=== PATIENT | female | born 1995 | race Caucasian/White ===

== ENCOUNTER 2023-10-04 13:14 | Observation (INO) | payer OTHER, MEDICAID, SELFPAY ==
[2023-10-04] VITALS (20 sets, daily range): BP systolic 98–118; BP diastolic 54–71; PULSE 79–116; RESP 10–23; TEMP 35.9–36.8; O2SAT 97–100; BMI 27.1
--- NOTE | 2023-10-04 | PATH_ITS ---
[facility] Accession Number: [id number] No. of containers..01 Tissue . 01 Material submitted: . fallopian tube - L FALLOPIAN TUBE W/ECTOPIC . 01 Diagnosis: L FALLOPIAN TUBE W/ECTOPIC: IMMATURE CHORIONIC VILLI EXPANDING LUMEN AND INVOLVING FALLOPIAN TUBE (ECTOPIC ). ASSOCIATED ACUTE SALPINGITIS, FIBRINOUS HEMORRHAGE, AND REACTIVE CHANGES. NO MALIGNANCY. . MNT 10/12/20231424 Local . 01 Electronically signed: . Tabatha Bustamante MD, Pathologist NPI- [id number] . 01 Gross description: . The specimen is received in formalin, labeled with the patient's name, , and L fallopian tube with ectopic, and consists of a fimbriated fallopian tube measuring 7.6 cm in length and ranging from 0.9 to 2.3 cm in diameter. A hemorrhagic serosal defect is identified measuring 2.3 x 1.4 cm. Sectioning reveals a dilated lumen filled with solid hemorrhagic material with no tissue identified. Telephone Information Clerk sections are submitted in cassettes A1-A3. ([id number]) /MRV 10/12/20231424 Local . 01 Pathologist provided ICD-10: O00 . 01 CPT . 610868 Performed at: 01 [facility] [address], [place], [place] [id number] MD Venkata Madera MD Phone: [phone]
--- NOTE | 2023-10-04 13:53 | ED_ITS ---
HPI - Seizure General Chief Complaint: Seizure Stated Complaint: abd px/seizure-like Time Seen by Provider: 10/04/23 13:52 Source: patient and EMS Mode of arrival: EMS History of Present Illness HPI Narrative: 27-year-old female presents with loss of consciousness episode. She has had bilateral lower abdominal pain, aching, nonradiating on clarification from triage, with associated nausea, no vomiting, no diarrhea or constipation, no fevers or chills, no chest pain, no shortness of breath, no back or flank pain, no dysuria or hematuria though with some urinary frequency. She denies prior abdominal surgeries. She has been taking ibuprofen which helps. No sudden or severe pain. However, today in clinic, pain was gradually worsening and she had a witnessed loss of consciousness episode as described below. She denies this happening before. No trauma. No headache. No neck pain. No visual or hearing changes. Significant other at bedside corroborating. No history of STDs. No vaginal discharge or lesions. No leg swelling, leg pain, history of blood clots. She has a ParaGard IUD. No other new concerns. She declines pain medications currently. Per chart review, she noted left lower quadrant pain since Wednesday night, 3 days ago, aching, worse with sitting or using restroom or coughing. She has IUD. She was noted to have blood pressure of 100/68, with some tachycardia. She had episode of during her assessment in clinic with preceding nausea and discomfort than associated brief loss of consciousness, with drop in BP to 70/30, diaphoresis. There was body jerking noted as per walk in clinic note. I called walk-in clinic to clarify episode. I spoke with Haydee. On clarification, Haydee states that patient had presyncopal symptoms, then LOC, with a brief episode of muscle jerking that sounds most consistent with myoclonic jerking. There was NO post ictal phase, no incontinence, no tongue biting. Related Data Home Medications Medication Instructions Recorded Confirmed ibuprofen 400 mg PO PRN PRN Pain (Scale 10/04/23 10/04/23 Score 4-6) Allergies Allergy/AdvReac Type Severity Reaction Status Date / Time No Known Drug Allergies Allergy Verified 10/04/23 16:07 Review of Systems Review of Systems Narrative: Constitutional: no fever, no chills Eyes: no visual disturbance, no discharge Ears, Nose, Mouth, Throat: no rhinorrhea, no sore throat Cardiovascular: no chest pain, no palpitations Respiratory: no cough, no shortness of breath Gastrointestinal: + abdominal pain, no vomiting, no diarrhea Genitourinary: no dysuria, no hematuria Musculoskeletal: no back pain, no neck stiffness Skin: no rash, no wound Neurological: no focal weakness, no focal numbness Patient History Surgical History (Updated 10/04/23 @ 15:56 by Anna Little MD) S/P wisdom tooth extraction Social History Smoking Status: Never smoker Smoking Status: Never smoker alcohol intake frequency: a few times a week Alcohol type: hard liquor Substance Use Type: marijuana Exam Narrative Exam Narrative: Const: no acute distress, non toxic appearing; calm, conversant, pleasant Eyes: PERRLA, EOMI ENT: mucous membranes moist; no tongue lacerations Neck: supple, non-tender Resp: no respiratory distress, clear to auscultation bilaterally Card: regular rate and rhythm, no murmurs Abd: Mild lower abdominal tenderness without any upper abdominal tenderness, negative Elizalde's sign, no rigidity or rebound or guarding Back: no T or L spine tenderness, no CVA tenderness bilaterally Extrem: no deformities, no swelling bilateral lower extremities, 2+ distal pulses all extremities Neuro: ANOx4. registered nurse first assistant 2-12 intact. No rotatory or vertical nystagmus. Normal tone all extremities. Sensation intact to light touch all extremities. No ankle clonus bilaterally. 5/5 motor strength all extremities. Normal FNF BUE; normal heel-krause test BLE. No pronator drift. No dysarthria. No neglect. Grossly normal cognition. Skin: no rash, warm and dry Initial Vital Signs Initial Vital Signs: Vital Signs Temperature 97.9 F 10/04/23 13:27 Pulse Rate 113 H 10/04/23 13:27 Respiratory Rate 16 10/04/23 13:27 Blood Pressure 114/69 10/04/23 13:27 Pulse Oximetry 100 10/04/23 13:27 Oxygen Delivery Method Room Air 10/04/23 13:27 Course Course Course Narrative: This patient presents with witnessed loss of consciousness episode that is highly consistent with syncope, not seizure, with history as above and currently reassuring neurovascular exam with no focal deficits. I suspect vasovagal episode potentially contributed to by preceding abdominal pain, in the setting of lower abdominal pain as above with a broad differential that I have considered including but not limited to appendicitis, diverticulitis, ectopic , pyelonephritis, UTI, STD, PID, tubo-ovarian abscess, gastroenteritis, among others. I am proceeding with CBC, CMP, lipase, urinalysis, hCG, EKG, CT abdomen and pelvis. I am giving fluids, Zofran and will closely reassess. She declines pain medications currently. CBC with leukocytosis that is neutrophilic, with anemia to 7.8, no thrombocytopenia. No recent for comparison. Chemistry grossly reassuring, no immediately concerning electrolyte derangements, no hypoglycemia, creatinine and LFTs within normal limits. EKG NSR without acute ischemia or immediately concerning interval prolongation. No WPW, Long QT, Brugada, HOCM. test returned positive, qualitative. This is highly concerning for ectopic . We are cancelling CT which has not been obtained yet, immediately requesting transvaginal ultrasound along with OB consult. I am requesting 2 large-bore IVs, adding type and screen, and updating patient. Quant hCG added. OB is in surgery, but my staff has alerted there team to concern for ruptured ectopic. Patient is currently hemodynamically stable and fully updated. engineer technical staff here. US tech reports ruptured ectopic as well as probable perforation of IUD through uterus. I spoke with Dr. Little on phone, reviewing case at 3:13PM. Patient appears comfortable, hemodynamically stable, though I did request 2u of pRBCs be crossed. Unclear Rh status at this point. Dr. Little in ER. Patient Rh positive, no RhoGAM needed. Patient remains stable, awaiting admission and OR. Radiology review of US below, which I agree with on my independent review: FINDINGS: Uterus: Uterus is anteverted and normal in size at 7.6 x 4.6 x 4.2 cm. The myometrium is heterogeneous. The endometrium measures 8 mm combined thickness. IUD in the endometrial canal. The IUD is lower than expected. Possible myometrial penetration. Small volume of fluid in the endometrial canal. No intrauterine gestational sac demonstrated. Ovaries: The right ovary measures 3.7 x 2 x 1.5 cm, with a calculated ovarian volume of 6 cc. The left ovary measures 4.1 x 2.3 x 2 cm, with a calculated ovarian volume of 10 cc. Arterial and venous flow is seen in both ovaries. Complex cystic mass adjacent to the left ovary measuring 2.3 x 2 x 1.9 cm, estimated volume of 5 cc. Mild peripheral blood flow. Other: Large amount of complex fluid in the pelvis. IMPRESSION: 1. Suspect left ovarian ectopic . Complex left paraovarian cystic mass measuring 2.3 cm. 2. Large volume of complex fluid in the pelvis. Suspect hemoperitoneum. 3. No intrauterine gestational sac. 4. IUD is malpositioned. Recommend removal and replacement when clinically indicated. Exam findings discussed with Dr. Little at 3:48 p.m. We strive to produce accurate, complete, and clear reports of imaging services. To assist us in improving patient care, this report was composed using standard report templates and voice recognition software. Therefore, it may contain abnormal punctuation, insertions and/or omissions. Occasional wrong-word or sound-alike substitutions may occur. Though we review the report and make efforts to correct it, we do recommend that the report be read carefully in proper context to recognize any text inaccuracies. Dictated by: Christoph Santana M.D. on 10/04/2023 at 15:36 Notes urine returned with bacteria; no antibiotics given in ER, I requested staff update OB team with this finding. This seems most likely incidental however this time given ruptured ectopic likely driving symptoms. Orders Ordered: ED Orders 10/04/23 13:19 CBC Auto Diff [Complete Blood Count AUTO DIFF] Stat CMP [Comprehensive Metabolic Panel] Stat HCG Quantitative /Beta subunit Stat Test Serum,Qual Stat 10/04/23 13:44 EKG-12 Lead Stat 10/04/23 14:23 US pelvic complete Stat 10/04/23 14:43 Type and Screen Stat 10/04/23 14:53 Urinalysis and Microscopic Stat Urine Culture Stat 10/04/23 15:17 Type and Screen Stat Lactated Ringer's (Lactated Ringers) 1,000 mls @ 21 mls/hr IV CONT FALLON Last Admin: 10/04/23 16:20 Dose: 21 mls/hr Documented By: CAYDEN Ondansetron HCl (Ondansetron 4 Mg/2 Ml Inj) 4 mg IV Q2HR PRN PRN Reason: Nausea And Vomiting Discontinued Medications Sodium Chloride (Normal Saline 0.9%) 1,000 mls @ 1,000 mls/hr IV BOLUS ONE Stop: 10/04/23 15:08 Last Infusion: 10/04/23 15:51 Dose: Infused Documented By: Admin: 10/04/23 14:54 Dose: 1,000 mls/hr Documented By: YUDI Cefazolin Sodium/Dextrose (Ancef) 100 mls @ 200 mls/hr IV NOW ONE Stop: 10/04/23 16:21 Scopolamine (Scopolamine 1 Patch) 1 patch TOP NOW ONE Stop: 10/04/23 16:12 Last Admin: 10/04/23 16:19 Dose: 1 patch Documented By: CAYDEN Vital Signs Vital signs: Vital Signs - 8 hr 10/04/23 13:27 10/04/23 13:40 10/04/23 13:41 Temperature 97.9 F Pulse Rate 113 H 104 H Respiratory Rate 16 13 Blood Pressure 114/69 113/71 Pulse Oximetry 100 100 Oxygen Delivery Method Room Air 10/04/23 14:00 10/04/23 14:00 10/04/23 14:30 Temperature Pulse Rate 101 H 94 H Respiratory Rate 21 Blood Pressure 106/62 Pulse Oximetry 100 100 Oxygen Delivery Method Room Air 10/04/23 14:30 10/04/23 15:00 10/04/23 15:00 Temperature Pulse Rate 95 H Respiratory Rate 23 Blood Pressure 108/66 107/68 Pulse Oximetry 100 Oxygen Delivery Method Room Air 10/04/23 15:30 10/04/23 15:30 Temperature Pulse Rate 105 H Respiratory Rate 20 Blood Pressure 113/69 Pulse Oximetry 100 Oxygen Delivery Method Room Air MDM - Seizure Lab Data 10/04/23 13:19 10/04/23 13:19 Labs: Lab Results 10/04/23 10/04/23 10/04/23 Range/Units 13:19 14:43 14:53 WBC 14.9 H (4.5-11.0) X10^3/uL RBC 3.55 L (4.0-5.2) X10^6/uL Hgb 11.8 L (12.0-16.0) g/dL Hct 33.3 L (36-46) % MCV 93.8 (80-100) fL MCH 33.3 (26-34) PG MCHC 35.5 (30-36) % RDW 12.0 (11.6-14.8) % Plt Count 398 (150-400) X10^3/uL Neut % (Auto) 74.3 (50-75) % Lymph % (Auto) 16.2 L (25-40) % [place] % (Auto) 9.1 (3-14) % Eos % (Auto) 0.1 L (2-4) % Baso % (Auto) 0.3 (0-2) % Neut # (Auto) 03461 H (6254-8070) /uL Lymph # (Auto) 2400 (2028-1859) /uL [place] # (Auto) 1400 H (0-900) /uL Eos # (Auto) 0 (0-450) /uL Baso # (Auto) 0 (0-100) /uL Sodium 138 (137-145) mmol/L Potassium 3.6 (3.4-5.1) mmol/L Chloride 108 H (98-107) mmol/L Carbon Dioxide 24 (22-32) mmol/L BUN 7 (7-17) mg/dL Creatinine 0.60 (0.52-1.04) mg/dL Estimated GFR > 60 (>60) mL/min BUN/Creatinine Ratio 11.7 (6-22) Glucose 123 H (70-100) mg/dL Calcium 8.8 (8.4-10.2) mg/dL Total Bilirubin 0.6 (0.2-1.3) mg/dL AST 27 (14-36) IU/L ALT 20 (<35) IU/L Alkaline Phosphatase 67 (38-126) U/L Total Protein 7.1 (6.3-8.2) g/dL Albumin 4.2 (3.5-5.0) g/dL Globulin 2.9 (1.7-4.1) g/dL Albumin/Globulin Ratio 1.4 (1.0-2.8) HCG, Quant 4035.1 mIU/mL Serum , Qual Positive H (Negative) Urine Color Yellow Urine Appearance Clear Urine pH 6.0 (4.5-8.0) Ur Specific [place] 1.025 (1.000-1.035) Urine Protein Trace H (Negative) Urine Glucose (UA) Negative (Negative) g/dL Urine Ketones Negative (NEGATIVE) Urine Occult Blood 2+ H (Negative) Urine Nitrate Negative (Negative) Urine Bilirubin Negative (NEGATIVE) Urine Urobilinogen 0.2 (0.2) E.U./dL Ur Leukocyte Esterase Negative (NEGATIVE) Urine RBC 5-10/hpf H (0-5/HPF) Urine WBC 5-10/hpf H (0-5/HPF) Ur Squamous Epith Cells 5-10 /hpf H (0-5/HPF) Ur Renal Epithelial Cell 1-5/hpf H (0-1/HPF) Urine Bacteria Many (>30) H (None) Ur Culture Indicated? Specimen cultured Vol Urine Centrifuged 10ml (spun) Blood Type O Positive Antibody Screen Negative Discharge Plan Departure Admit Date/Time: 10/04/23 15:40 Admit Provider: Anna Little
[2023-10-04 13:55] LABS: Add Manual Diff / Slide Review NO; Basophils Absolute Auto 0 /uL (0-100); Basophils Percent Auto 0.3 % (0-2); Eosinophils Absolute Auto 0 /uL (0-450); Eosinophils Percent Auto 0.1 % (2-4); Hematocrit 33.3 % (36-46); Hemoglobin 11.8 g/dL (12.0-16.0); Lymphocytes Absolute Auto 2400 /uL (1100-4500); Lymphocytes Percent Auto 16.2 % (25-40); Mean Corpuscular HGB Conc 35.5 % (30-36); Mean Corpuscular Hemoglobin 33.3 PG (26-34); Mean Corpuscular Volume 93.8 fL (80-100); Monocytes Absolute Auto 1400 /uL (0-900); Monocytes Percent Auto 9.1 % (3-14); Neutrophils Absolute Auto 11100 /uL (1500-7000); Neutrophils Percent Auto 74.3 % (50-75); Platelet Count 398 X10^3/uL (150-400); Red Blood Cell Count 3.55 X10^6/uL (4.0-5.2); White Blood Cell Count 14.9 X10^3/uL (4.5-11.0)
[2023-10-04 14:00] LABS: Alanine Aminotransferase 20 IU/L (<35); Albumin 4.2 g/dL (3.5-5.0); Albumin Globulin Ratio 1.4 (1.0-2.8); Alkaline Phosphatase 67 U/L (38-126); Aspartate Aminotransferase 27 IU/L (14-36); BUN Creatinine Ratio 11.7 (6-22); Bilirubin Total 0.6 mg/dL (0.2-1.3); Blood Urea Nitrogen 7 mg/dL (7-17); Calcium 8.8 mg/dL (8.4-10.2); Carbon Dioxide 24 mmol/L (22-32); Chloride 108 mmol/L (98-107); Estimated Glomerular Filt Rate > 60 mL/min (>60); Globulin 2.9 g/dL (1.7-4.1); Glucose 123 mg/dL (70-100); HEMOLYSIS < 15 (0-50); Potassium 3.6 mmol/L (3.4-5.1); Sodium 138 mmol/L (137-145); Total Protein 7.1 g/dL (6.3-8.2)
[2023-10-04 14:03] LABS: Pregnancy Test Serum,Qual Positive (Negative)
--- NOTE | 2023-10-04 14:23 | DI.US.S_ITS ---
PROCEDURE: US PELVIC COMPLETE INDICATIONS: BILATERAL ADNEXA PAIN WITH BLEEDING. COPPER IUD 2018. POS HCG. TECHNIQUE: Real-time scanning was performed of the pelvic organs, with image documentation. Additional endovaginal scanning was necessary due to incomplete visualization of the adnexal and endometrial structures by transabdominal scanning. COMPARISON: None. FINDINGS: Uterus: Uterus is anteverted and normal in size at 7.6 x 4.6 x 4.2 cm. The myometrium is heterogeneous. The endometrium measures 8 mm combined thickness. IUD in the endometrial canal. The IUD is lower than expected. Possible myometrial penetration. Small volume of fluid in the endometrial canal. No intrauterine gestational sac demonstrated. Ovaries: The right ovary measures 3.7 x 2 x 1.5 cm, with a calculated ovarian volume of 6 cc. The left ovary measures 4.1 x 2.3 x 2 cm, with a calculated ovarian volume of 10 cc. Arterial and venous flow is seen in both ovaries. Complex cystic mass adjacent to the left ovary measuring 2.3 x 2 x 1.9 cm, estimated volume of 5 cc. Mild peripheral blood flow. Other: Large amount of complex fluid in the pelvis. IMPRESSION: 1. Suspect left ovarian ectopic . Complex left paraovarian cystic mass measuring 2.3 cm. 2. Large volume of complex fluid in the pelvis. Suspect hemoperitoneum. 3. No intrauterine gestational sac. 4. IUD is malpositioned. Recommend removal and replacement when clinically indicated. Exam findings discussed with Dr. Little at 3:48 p.m. We strive to produce accurate, complete, and clear reports of imaging services. To assist us in improving patient care, this report was composed using standard report templates and voice recognition software. Therefore, it may contain abnormal punctuation, insertions and/or omissions. Occasional wrong-word or sound-alike substitutions may occur. Though we review the report and make efforts to correct it, we do recommend that the report be read carefully in proper context to recognize any text inaccuracies. Dictated by: Christoph Santana M.D. on 10/04/2023 at 15:36 Approved by: Christoph Santana M.D. on 10/04/2023 at 15:49
[2023-10-04] MEDS: SODIUM CHLORIDE 0.9% 1,000 ML 1000 ML IV (14:54)
[2023-10-04 15:07] LABS: Appearance Urine UA CLEAR; Bilirubin Urine UA NEGATIVE (NEGATIVE); Color Urine UA YELLOW; Glucose Urine UA NEGATIVE (Negative); Ketones Urine UA NEGATIVE (NEGATIVE); Leukocyte Esterase Urine UA NEGATIVE (NEGATIVE); Nitrite Urine UA NEGATIVE (Negative); Occult Blood Urine UA 2+ (Negative); Protein Urine UA TRACE (Negative); Specific Gravity Urine UA 1.025 (1.000-1.035); Urobilinogen Urine UA 0.2 E.U./dL (0.2)
[2023-10-04 15:16] LABS: Bacteria Urine Many (>30); Culture Indicated Urine Specimen Cultured; RBC Urine 5-10/HPF (0-5/HPF); Renal Epithelial Cells Urine 1-5/HPF (0-1/HPF); Squamous Epithelial Cell Urine 5-10 /HPF (0-5/HPF); Urine Volume 10mL (spun); WBC Urine 5-10/HPF (0-5/HPF)
[2023-10-04 15:17] LABS: HCG Quantitative /Beta subunit 4035.1 mIU/mL
--- NOTE | 2023-10-04 15:54 | PM.GYNHP.1 ---
History of Present Illness History of Present Illness Reason for admission: ectopic (Left) Narrative: Terri Valdez is a 27 year old female with a ruptured left ectopic and possible perforation of the uterus with ParaGard IUD. Patient reports that last Wednesday she started having some lower abdominal pain. Both sides. She had it again on Wednesday. Today she not only had pain but also felt lightheaded. Went to the walk-in clinic where she had a syncopal episode. She was then brought to the emergency department. She has had the ParaGard IUD in place for 4 years. She did check the strings yesterday as she thought that the IUD might be related to why she was having pain. She was able to palpate the strings. [facility] Surgical History (Updated 10/04/23 @ 15:56 by Anna Little MD) S/P wisdom tooth extraction Social History Smoking Status: Never smoker Meds Home Medications and Allergies Home Medications Medication Instructions Recorded Confirmed Type No Known Home Medications 10/04/23 10/04/23 History Allergies Allergy/AdvReac Type Severity Reaction Status Date / Time No Known Drug Allergies Allergy Verified 10/04/23 12:35 Exam Vital Signs (past 8 hours): - 10/04/23 13:27 10/04/23 13:40 10/04/23 13:41 Temperature 97.9 F Pulse Rate 113 H 104 H Respiratory Rate 16 13 Blood Pressure 114/69 113/71 Pulse Oximetry 100 100 Oxygen Delivery Method Room Air 10/04/23 14:00 10/04/23 14:00 10/04/23 14:30 Temperature Pulse Rate 101 H 94 H Respiratory Rate 21 Blood Pressure 106/62 Pulse Oximetry 100 100 Oxygen Delivery Method Room Air 10/04/23 14:30 10/04/23 15:00 10/04/23 15:00 Temperature Pulse Rate 95 H Respiratory Rate 23 Blood Pressure 108/66 107/68 Pulse Oximetry 100 Oxygen Delivery Method Room Air 10/04/23 15:30 10/04/23 15:30 Temperature Pulse Rate 105 H Respiratory Rate 20 Blood Pressure 113/69 Pulse Oximetry 100 Oxygen Delivery Method Room Air Oxygen Delivery Method Room Air Narrative Exam Narrative: Generally: A well-developed, well-nourished female, no acute distress Lungs: Clear to auscultation bilaterally Cardiovascular: Regular rate and rhythm Abdomen: Soft and flat. She does have tenderness in both lower quadrants. Extremities: No edema Objective Imaging US - abdomen: Radiologist's impression: Uterus: Uterus is anteverted and normal in size at 7.6 x 4.6 x 4.2 cm. The myometrium is heterogeneous. The endometrium measures 8 mm combined thickness. IUD in the endometrial canal. The IUD is lower than expected. Possible myometrial penetration. Small volume of fluid in the endometrial canal. No intrauterine gestational sac demonstrated. Labs 10/04/23 13:19 10/04/23 13:19 Labs: Laboratory Results - last 24 hr 10/04/23 10/04/23 10/04/23 13:19 14:43 14:53 WBC 14.9 H RBC 3.55 L Hgb 11.8 L Hct 33.3 L MCV 93.8 MCH 33.3 MCHC 35.5 RDW 12.0 Plt Count 398 Neut % (Auto) 74.3 Lymph % (Auto) 16.2 L [place] % (Auto) 9.1 Eos % (Auto) 0.1 L Baso % (Auto) 0.3 Neut # (Auto) 13346 H Lymph # (Auto) 2400 [place] # (Auto) 1400 H Eos # (Auto) 0 Baso # (Auto) 0 Sodium 138 Potassium 3.6 Chloride 108 H Carbon Dioxide 24 BUN 7 Creatinine 0.60 Estimated GFR > 60 BUN/Creatinine Ratio 11.7 Glucose 123 H Calcium 8.8 Total Bilirubin 0.6 AST 27 ALT 20 Alkaline Phosphatase 67 Total Protein 7.1 Albumin 4.2 Globulin 2.9 Albumin/Globulin Ratio 1.4 HCG, Quant 4035.1 Serum , Qual Positive H Urine Color Yellow Urine Appearance Clear Urine pH 6.0 Ur Specific [place] 1.025 Urine Protein Trace H Urine Glucose (UA) Negative Urine Ketones Negative Urine Occult Blood 2+ H Urine Nitrate Negative Urine Bilirubin Negative Urine Urobilinogen 0.2 Ur Leukocyte Esterase Negative Urine RBC 5-10/hpf H Urine WBC 5-10/hpf H Ur Squamous Epith Cells 5-10 /hpf H Ur Renal Epithelial Cell 1-5/hpf H Urine Bacteria Many (>30) H Ur Culture Indicated? Specimen cultured Vol Urine Centrifuged 10ml (spun) Blood Type O Positive Antibody Screen Negative Assessment & Plan Assessment & Plan narrative: Assessment: 27-year-old 1 para 0 with a ruptured left ectopic and a ParaGard IUD in the lower uterine segment Possible perforation of the uterine wall with the ParaGard IUD Plan: Diagnostic laparoscopy with possible left salpingectomy, possible diagnostic hysteroscopy with removal of IUD Removal of ParaGard IUD Placement of new [place] IUD The risks, benefits, and alternatives to the procedure were explained to the patient. The risks including bleeding, infection, injury to the bowel, bladder or ureters. Also a risk of uterine perforation. She understands all of these risks and agrees to proceed. A full par Q was held and consent form was signed. Time Spent With Patient Time with patient: less than 30 minutes
--- NOTE | 2023-10-04 16:00 | PM.PREOP ---
Pre-operative Note Interval Note History & Physical reviewed/Exam performed by Physician: Yes Changes to H&P: No H&P completed within 30 days and has changed as indicated here:: 10/04/23
[2023-10-04] MEDS: SCOPOLAMINE 1 PATCH TOP (16:19)
[2023-10-04] MEDS: LACTATED RINGERS 1,000 ML 21 ML IV ×2 (16:20→17:38)
[2023-10-04] MEDS: CEFAZOLIN 2 GM/100 ML PREMIX 100 ML IV (16:38)
--- NOTE | 2023-10-04 16:59 | PC.NURSE ---
Or Nurse aware that patient has a UTI. reported to Dr. Little .
[2023-10-04] MEDS: BUPIVACAINE 0.5% (PF) 30 ML, EPINEPHrine 0.15 MG INJ (17:01)
--- NOTE | 2023-10-04 17:10 | SUR.OPER ---
Lithotomy on padded OR bed. [place] Pad Positioner under torso. Head on pillow, arms padded and tucked at sides. Legs secured in padded yellow fins stirrups.
[2023-10-04] MEDS: ACETAMINOPHEN IV 1,000 MG/100 ML VIAL 400 MG IV (17:27)
--- NOTE | 2023-10-04 18:04 | P.OP_ITS ---
Operative Date/Time/Diagnoses Date of procedure: 10/04/23 Time of procedure: 18:04 Pre-op diagnosis: Ruptured left ectopic ParaGard IUD in the lower uterine segment Post-op diagnosis: same Procedure & Clinicians Procedure: Procedures Operation Date: 10/04/23 16:30 Actual Procedure Side Surgeon p Laparoscopic Salpingectomy with Ectopic Extraction Anna Little MD Indications: 27-year-old 1 para 0 who presented to the emergency department with lower abdominal pain. On ultrasound ParaGard IUD was found to be in the lower uterine segment, and possibly 1 of the arms perforating the uterine wall. And she was found to have a ruptured left ectopic. She was found to have significa nt free fluid in the abdomen. Surgeon: Anna Little Anesthesia Type: General and Local Operative Notes Findings: 6 cm x 2 cm left ectopic 1.5 L of blood/clot in the pelvis/abdomen Normal uterus Normal left ovary Normal right tube and ovary Normal appendix Normal gallbladder and liver ParaGard IUD sitting in the lower uterine segment Closure Type: primary Specimen(s): left tube (With ectopic) Estimated blood loss (mL): 5 Blood products transfused: none Procedure in detail: After informed consent was obtained, the patient was taken to the operating room where she was placed in the dorsal supine position. After adequate general endotracheal anesthesia was achieved, she was placed in the dorsal lithotomy position, and prepped and draped in the usual sterile fashion. A time-out was performed. A bivalve speculum was placed into the vagina. The IUD strings were visible outside of the cervical os. They were grasped with a ring forceps and the IUD was removed. The cervical os was sequentially dilated until the Zumi uterine manipulator could pass easily into the endometrial cavity. The single- tooth tenaculum was removed from the anterior lip of the cervix. The bivalve speculum was removed from the vagina. Attention was turned to the abdomen where 6 cc of 0.5% Marcaine with epinephrine were injected in the umbilical fold. A 5 mm incision was made. The Veress needle was placed into the peritoneal cavity, on aspiration there was bloody fluid. The abdomen was insufflated with 3.2 L of CO2. The Veress needle was removed, and a 5 mm trocar was placed without difficulty. Initial inspection of the pelvis and abdomen revealed a large amount of blood and clot. Two other incisions were made 4 cm lateral to the midline after 6 cc of 0.5% Marcaine with epinephrine were injected and two 5 mm trocars were placed under direct visualization. The abdomen was copiously irrigated with warm normal saline to break up the clot. The uterus was lifted out of the pelvis. Using a probe the pelvis and abdomen were examined with the findings noted above. The left tube was grasped with an atraumatic grasper. Using the power seal, the mesosalpinx on the left side was cauterized and cut all the way down to the cornua of the uterus. The tube was amputated at the cornua. The tube was placed into the anterior cul-de-sac. 6 cc of 0.5% Marcaine with epinephrine were injected above the pubic symphysis in the midline. An 11 mm incision was made. An 11 mm trocar was placed under direct visualization. The endobag was placed through the suprapubic trocar. The left tube with the ectopic was placed into the bag. The trocar was removed. The bag was brought up through the incision intact. The fascia on the suprapubic incision was closed with a [id number] suture with 0 Vicryl. The abdomen was re-insufflated. The pelvis was examined. Using the clots sucker, the remainder of the clot and blood was aspirated and irrigated from the pelvis. The patient was taken out of Trendelenburg and blood from the upper abdomen was also aspirated. The instruments were removed from the abdomen. The CO2 was allowed to escape. The incisions were repaired with 4-0 Monocryl in a subcuticular fashion. Steri-Strips and Allevyn dressings were placed. The Zumi uterine manipulator was removed from the uterus. Sponge, lap, and instrument counts were correct x2. The patient tolerated the procedure well, and was taken to PACU in stable condition. Complications: none Post-operative Condition: stable Disposition: PACU Plan for aftercare: To acute care after recovery
[2023-10-04 18:38] LABS: Hematocrit 27.6 % (36-46); Hemoglobin 9.6 g/dL (12.0-16.0); Mean Corpuscular HGB Conc 34.9 % (30-36); Mean Corpuscular Hemoglobin 32.7 PG (26-34); Mean Corpuscular Volume 93.6 fL (80-100); Platelet Count 237 X10^3/uL (150-400); Red Blood Cell Count 2.94 X10^6/uL (4.0-5.2); Red Cell Distribution Width 12.1 % (11.6-14.8); White Blood Cell Count 11.5 X10^3/uL (4.5-11.0)
[2023-10-04] MEDS: OXYCODONE IR 5 MG TABLET PO (18:48)
[2023-10-04] MEDS: ONDANSETRON 4 MG/2 ML INJ IV (18:48)
[2023-10-04] MEDS: LACTATED RINGERS 500 ML 1000 ML IV (18:55)
[2023-10-04] MEDS: LACTATED RINGERS 1,000 ML 100 ML IV (20:06)
[2023-10-04] MEDS: KETOROLAC 30 MG/ML VIAL IV (20:06)
[2023-10-04] MEDS: DOCUSATE 100 MG CAPSULE 200 MG PO (21:26)
[2023-10-04] MEDS: ACETAMINOPHEN 325 MG TABLET 650 MG PO (23:55)
[2023-10-05] MEDS: KETOROLAC 30 MG/ML VIAL IV ×2 (01:15→08:25)
[2023-10-05 05:16] VITALS: BP 102/57; PULSE 95; RESP 18; TEMP 36.2; O2SAT 99
[2023-10-05] MEDS: ACETAMINOPHEN 325 MG TABLET 650 MG PO ×2 (05:53→12:53)
[2023-10-05 06:24] LABS: Basophils Absolute Auto 0 /uL (0-100); Basophils Percent Auto 0.1 % (0-2); Eosinophils Absolute Auto 0 /uL (0-450); Hematocrit 24.4 % (36-46); Hemoglobin 8.8 g/dL (12.0-16.0); Lymphocytes Absolute Auto 500 /uL (1100-4500); Lymphocytes Percent Auto 6.9 % (25-40); Mean Corpuscular HGB Conc 36.1 % (30-36); Mean Corpuscular Hemoglobin 33.8 PG (26-34); Mean Corpuscular Volume 93.6 fL (80-100); Monocytes Absolute Auto 400 /uL (0-900); Monocytes Percent Auto 5.2 % (3-14); Neutrophils Absolute Auto 7000 /uL (1500-7000); Neutrophils Percent Auto 87.8 % (50-75); Platelet Count 247 X10^3/uL (150-400); Red Cell Distribution Width 12.2 % (11.6-14.8)
--- NOTE | 2023-10-05 06:34 | PC.NURSE ---
Admit/NOC Shift Note- Patient arrived to room via bed from PACU at 1945. Patient alert and oriented and able to make needs known to staff. Admit assessment done, physical assessment done, medications reviewed, and skin check completed. Patient orientered to bed and controls, lights, menu, bathroom, and call he/tv remote. No complaints of pain or discomfort. No complaints of N/V. Patient agrees to call for assistance. call he and phone within reach.
[2023-10-05 06:47] LABS: Add Manual Diff / Slide Review SLIDE REVIEW
[2023-10-05 06:56] LABS: Rouleaux 1+
[2023-10-05 08:00] VITALS: BP 105/61; PULSE 91; RESP 15; TEMP 36.6; O2SAT 100
[2023-10-05] MEDS: DOCUSATE 100 MG CAPSULE 200 MG PO (08:25)
[2023-10-05] MEDS: IBUPROFEN 600 MG TABLET PO (12:52)
--- NOTE | 2023-10-05 14:00 | PC.NURSE ---
Discharge: Pt feels ready to d/c to home. Seen by Dr. Little and given d/c instructions. Has been up and amb in room. Diet tolerated w/out problems. Voids w/out diff. No use of narcotic pain medication. Tylenol and Ibuprofen have been effective for pain. Scant vag flow, almost none. Pt d/c to home via auto w/friend.
--- NOTE | 2023-10-05 14:17 | CM.DANOTE ---
DCP Assessment Patient is a 27 yo female who was admitted 10/04/23 OBS status for Abd Pain. Pt has no insurance and no PCP due to no insurance. EMR was reviewed. Per OBGYN, pt with GIPO with ruptured ectopic with IUD removal and pt tolerated procedure well and voiding independently, ambulating, pain controlled and medically stable to discharge home today. Per RN, pt's friend to provide transport home and pt given discharge instructions and no discharge concerns noted. Pt lives with Sig Other and independent at baseline and drives. Per [employer], pt without insurance and does not qualify for [employer] but on the Health Plan Finder shopping for insurance and given [facility] [employer] application. BARRY Choudhary
--- NOTE | 2023-10-06 21:22 | P.DS_ITS ---
History of Present Illness History of Present Illness Date Patient Seen: 10/06/23 Time Patient Seen: 10:30 Chief complaint: abd px/seizure-like Discharge Providers Provider Date of admission: 10/04/23 15:40 Discharge Date: 10/05/23 Primary care physician: Doctor Byron MD Discharge provider: Anna Little MD Summary Hospital Course Discharge Diagnosis: Ruptured left ectopic Displaced Paraguard IUD Laparoscopic left oophorectomy Aspiration of blood/clot in the pelvic Acute blood loss anemia Hospital Course: Patient is a 27 year old who presented to the ED with lower abdominal pain and a syncopal episode. She was found to have a + UCG and an ultrasound revealed a Paragard IUD in the lower uterine segment and a ruptured left ectopic with blood in the pelvis. She underwent a laparoscopic removal of the left tube and aspiration of blood in the pelvis, as well as removal of the Paragard IUD and placement of a Kyleena IUD. Her H/H dropped to 8.8/24 postoperatively. She was kept overnight due to tachycardia and occasional drops in blood pressure. The next morning she was asymptomatic. She was discharged to home. Status at Discharge Cognitive/behavioral status at discharge: oriented Functional status at discharge: independent ambulation Overall status at discharge: patient is progressing back to baseline Time Spent with Patient Time spent: Less than 30 minutes Exam Vital Signs (past 8 hours): Oxygen Delivery Method Room Air Oxygen Flow Rate 0 Narrative Exam Narrative: Gen: Sitting up in bed, NAD Lungs: CTA bilat CV: RRR Abd: Soft and flat Incisions: C/D/I with Allevyn dressings Ext: No edema, negative Jeffy's. Objective Labs 10/05/23 04:25 10/04/23 13:19 [facility] Surgical History (Updated 10/04/23 @ 15:56 by Anna Little MD) S/P wisdom tooth extraction Social History household members: significant other Smoking Status: Never smoker alcohol intake: current Discharge Assessment & Plan Assessment and Plan Assessment: POD#1 s/p Laparoscopic left salpingectomy due to a ruptured ectopic, removal of Paragard IUD and placement of Kyleena IUD doing very well Plan of Treatment: Discharge to home F/U 2 weeks Discharge Plan Discharge Plan Patient Disposition: Home Provider Discharge Comment: Call with fever, chills, redness or drainage around the incisions Expect a small amount of vaginal bleeding Ibuprofen 600 mg every 6 hours Tylenol 650 mg every 6 hours Stool softeners as needed Slow Fe (iron) for at least a month Discharge orders & Medications Prescriptions: New oxycodone 5 mg tablet 5 mg PO Q4H PRN (Reason: pain) Qty: 20 0RF oxycodone 5 mg tablet 5 mg PO Q4H PRN (Reason: pain) Qty: 20 0RF Continued ibuprofen 400 mg PO PRN PRN (Reason: Pain (Scale Score 4-6)) Follow up/Referrals: Anna Little MD [Physician] - (10/18/23 check in at 3:30 for paperwork, 4:00pm appointment If she has any issues prior to that appointment please call [phone] ) Diet/Activity/Treatments Diet: Regular Activity: No heavy lifting for the first week Skin/Wound/Dressing Care Report to your healthcare provider any signs of infection, such as:: chills, fever, increased pain, unusual drainage and unusual redness Dressing: Remove outer pink dressings with attached gauze on Wednesday after morning shower May shower daily Leave Steri-Strips in place Visit Report/Discharge Packet Instructions: DI for Ectopic , Good Food Sources of Iron, DI for Laparoscopy, DI for Constipation, DI for Prescription Opioid Use Stand Alone Forms: Patient Portal/API, Stroke Signs & Symptoms, Surgery Discharge Discharge Data Primary Care Provider: Miscellaneous,Doctor Attending Provider: Anna Little Admit Date/Time: 10/04/23 15:40 Quality VTE Deep Vein Thrombosis/Pulmonary Embolism Present on Admission: No
== END 2023-10-05 13:27 | disposition home or self-care (01) ==
LOC: ED 15:23 → AC 15:41
PROVIDERS: Student in an Organized Health Care Education/Training Program; Admitting Provider Obstetrics & Gynecology; Emergency Provider Emergency Medicine; Visit Provider Obstetrics & Gynecology
PROC: (CPT 58301; principal; 2023-10-04 16:30)
DX: O00.102 Left tubal pregnancy without intrauterine pregnancy (principal); I95.9 Hypotension, unspecified; G25.3 Myoclonus; T83.32XA Displacement of intrauterine contraceptive device, initial encounter; O08.89 Other complications following an ectopic and molar pregnancy; O08.1 Delayed or excessive hemorrhage following ectopic and molar pregnancy
CPT/HCPCS: 58301; 59151; 36415; 76830; 76856; 80053; 81001; 84702; 84703; 85025; 85027; 86850; 86900; 86901; 87086; 93005; 93010; 93975; 96361; 96374; 96375; 96376; 99221; 99284; C1776; G0378; J0136; J0171; J0330; J0690; J1100; J1885; J2405; J2704; J3010; J3490

== ENCOUNTER → 2024-01-24 11:52 | Outpatient (CLI) | payer OTHER, MEDICAID, SELFPAY ==
[2023-10-04 15:49] VITALS: BMI 27.1
[2024-01-24 13:55] LABS: HCG Quantitative /Beta subunit < 2.39 mIU/mL
== END ==
PROVIDERS: Referring Provider Obstetrics & Gynecology; Visit Provider Obstetrics & Gynecology
DX: R10.2 Pelvic and perineal pain (principal); Z87.59 Personal history of other complications of pregnancy, childbirth and the puerperium
CPT/HCPCS: 36415; 84702

== ENCOUNTER → 2025-05-30 09:59 | Outpatient (CLI) | payer OTHER, SELFPAY ==
[2023-10-04 15:49] VITALS: BMI 27.1
[2025-05-30 11:30] LABS: HCG Quantitative /Beta subunit 110.88 mIU/mL
== END ==
PROVIDERS: PCP Physician Assistant; Referring Provider Obstetrics & Gynecology; Visit Provider Obstetrics & Gynecology
DX: R10.20 Pelvic and perineal pain unspecified side (principal); T83.31XA Breakdown (mechanical) of intrauterine contraceptive device, initial encounter; Z33.1 Pregnant state, incidental
CPT/HCPCS: 36415; 84702

== ENCOUNTER → 2025-06-01 10:45 | Outpatient (CLI) | payer OTHER, SELFPAY ==
[2023-10-04 15:49] VITALS: BMI 27.1
[2025-06-01 12:02] LABS: HCG Quantitative /Beta subunit 283.14 mIU/mL
== END ==
PROVIDERS: PCP Physician Assistant; Referring Provider Obstetrics & Gynecology; Visit Provider Obstetrics & Gynecology
DX: Z32.01 Encounter for pregnancy test, result positive (principal)
CPT/HCPCS: 36415; 84702

== ENCOUNTER → 2025-06-05 07:08 | Outpatient (CLI) | payer OTHER, SELFPAY ==
[2023-10-04 15:49] VITALS: BMI 27.1
--- NOTE | 2025-06-05 07:09 | DI.US.S_ITS ---
PROCEDURE: US OB <= 14 WEEKS FETUS INDICATIONS: dating US OUTSIDE/PRIOR DATING DATA: Last menstrual period (LMP): Not provided TECHNIQUE: Real-time scanning was performed of the fetus and maternal pelvic organs, with image documentation. Endovaginal scanning was also performed to better visualize the fetus and maternal ovaries. COMPARISON: [facility], US, US PELVIC COMPLETE, 10/04/2023, 14:46. FINDINGS: Uterus measures 7.8 x 3.8 x 5.6 cm is. Intrauterine device is seen in expected position in the endometrial canal. No intrauterine gestational sac or fluid collection is seen. Myometrium is homogeneous. Right ovary measures 2.5 x 4.2 x 2.4 cm with a calculated volume of 13 mL. Left ovary measures 1.1 x 2.9 x 1.2 cm with a calculated volume of 2.1 mL. A complex hypoechoic lesion is seen in the right ovary measuring 2.3 x 1.3 x 1.6 cm with only peripheral vascularity. No adnexal mass separate from the ovary. A small volume of fluid with low level echoes is seen in the pelvic cul-de-sac. IMPRESSION: 1. No intrauterine is seen. Intrauterine device is present in expected position. 2. Right ovarian peripherally enhancing 2.3 cm lesion is likely a corpus luteal cyst although ovarian ectopic cannot be entirely excluded. No adnexal mass is seen separate from the ovaries. There is no report of current pelvic pain or symptoms. If the patient becomes symptomatic, recommend immediate presentation to the Emergency Department. Recommend close clinical correlation and follow-up as well as serial beta HCG measurements and follow-up ultrasound as needed. 3. Small amount of complex fluid in the pelvic cul-de-sac versus hemoperitoneum. Approved by: Alin Hernandez M.D. on 06/05/2025 at 8:00
== END ==
LOC: US 07:09
PROVIDERS: PCP Physician Assistant; Referring Provider Obstetrics & Gynecology; Visit Provider Obstetrics & Gynecology
DX: T83.31XA Breakdown (mechanical) of intrauterine contraceptive device, initial encounter (principal); N83.9 Noninflammatory disorder of ovary, fallopian tube and broad ligament, unspecified; Z33.1 Pregnant state, incidental; Z32.01 Encounter for pregnancy test, result positive
CPT/HCPCS: 76830; 76856

== ENCOUNTER → 2025-06-06 14:49 | Outpatient (CLI) | payer OTHER, SELFPAY ==
[2023-10-04 15:49] VITALS: BMI 27.1
[2025-06-06 15:23] LABS: Alanine Aminotransferase 20 IU/L (<35); Albumin 4.6 g/dL (3.5-5.0); Albumin Globulin Ratio 1.5 (1.0-2.8); Alkaline Phosphatase 76 U/L (38-126); Blood Urea Nitrogen 10 mg/dL (7-17); Calcium 8.8 mg/dL (8.4-10.2); Carbon Dioxide 22 mmol/L (22-32); Chloride 103 mmol/L (98-107); Estimated Glomerular Filt Rate > 60 mL/min (>60); Globulin 3.0 g/dL (1.7-4.1); Glucose 95 mg/dL (70-99); HEMOLYSIS < 15 (0-50); Potassium 3.7 mmol/L (3.4-5.1); Sodium 137 mmol/L (137-145); Total Protein 7.6 g/dL (6.3-8.2)
[2025-06-06 15:40] LABS: HCG Quantitative /Beta subunit 1631.4 mIU/mL
== END ==
PROVIDERS: PCP Physician Assistant; Referring Provider Obstetrics & Gynecology; Visit Provider Obstetrics & Gynecology
DX: O00.90 Unspecified ectopic pregnancy without intrauterine pregnancy (principal)
CPT/HCPCS: 36415; 80053; 84702

== ENCOUNTER → 2025-06-13 09:46 | Outpatient (CLI) | payer OTHER, SELFPAY ==
[2023-10-04 15:49] VITALS: BMI 27.1
[2025-06-13 11:06] LABS: HCG Quantitative /Beta subunit 1483.4 mIU/mL
== END ==
PROVIDERS: PCP Physician Assistant; Referring Provider Physician Assistant; Visit Provider Obstetrics & Gynecology
DX: O00.90 Unspecified ectopic pregnancy without intrauterine pregnancy (principal)
CPT/HCPCS: 36415; 84702

== ENCOUNTER → 2025-06-18 10:20 | Outpatient (CLI) | payer OTHER, SELFPAY ==
[2023-10-04 15:49] VITALS: BMI 27.1
[2025-06-18 16:01] LABS: HCG Quantitative /Beta subunit 164.49 mIU/mL
== END ==
PROVIDERS: PCP Physician Assistant; Referring Provider Obstetrics & Gynecology; Visit Provider Obstetrics & Gynecology
DX: O00.90 Unspecified ectopic pregnancy without intrauterine pregnancy (principal)
CPT/HCPCS: 36415; 84702

== ENCOUNTER → 2025-06-25 10:14 | Outpatient (CLI) | payer OTHER, SELFPAY ==
[2023-10-04 15:49] VITALS: BMI 27.1
[2025-06-25 12:04] LABS: HCG Quantitative /Beta subunit 11.86 mIU/mL
== END ==
PROVIDERS: PCP Physician Assistant; Referring Provider Physician Assistant; Visit Provider Obstetrics & Gynecology
DX: O00.90 Unspecified ectopic pregnancy without intrauterine pregnancy (principal)
CPT/HCPCS: 36415; 84702

== ENCOUNTER → 2025-07-19 09:52 | Outpatient (CLI) | payer OTHER, SELFPAY ==
[2023-10-04 15:49] VITALS: BMI 27.1
[2025-07-19 11:45] LABS: HCG Quantitative /Beta subunit < 2.39 mIU/mL
== END ==
PROVIDERS: PCP Physician Assistant; Referring Provider Physician Assistant; Visit Provider Obstetrics & Gynecology
DX: O00.90 Unspecified ectopic pregnancy without intrauterine pregnancy (principal)
CPT/HCPCS: 36415; 84702